=== PATIENT | male | born 1985 | race Caucasian/White ===

== ENCOUNTER → 2019-08-11 | Outpatient (CLI) | payer BC ==
--- NOTE | 2019-08-11 10:39 | KCIC ---
AP and Lateral Views of the Chest 08/11/2019 12:00 AM Indication: Shortness of breath. Difficulty breathing x1 month, increasing over the last 2-3 days. 15 year smoking history. Comparison: None available Findings: There is no focal consolidation or infiltrate identified. The cardiomediastinal silhouette is within normal limits. There is no evidence of pneumothorax or pleural effusion. No acute osseous abnormalities are identified. Impression: No evidence of acute cardiopulmonary process. Electronically signed by: Noam Randolph MD (08/11/2019 10:37 AM) [id number]
== END | disposition home or self-care (01) ==
LOC: KCIC 10:13
PROVIDERS: ATTEND Physician Assistant Medical
DX: R06.02 Shortness of breath (principal)
CPT/HCPCS: 71046

== ENCOUNTER 2019-11-18 10:13 | Emergency (ER) | payer BC ==
[~2019-11-18] VITALS: Ht 177.8 cm; Wt 81.8 kg
[2019-11-18 10:22] VITALS: BP 166/79
[2019-11-18] MEDS ORDERED: LIDOCAINE 1%/EPI 1:100,000 20 ML VIAL. INJ ONE (10:45)
[2019-11-18] MEDS ORDERED: ONDANSETRON ODT 4 MG TAB.RAPDIS. PO ONE (10:45)
[2019-11-18] MEDS ORDERED: DIPH,PERTUSS(ACELL),TET VAC/PF 0.5 ML SYRINGE. VAX IM ONE (10:45)
[2019-11-18] MEDS ORDERED: MORPHINE SULFATE 10 MG/ML VIAL. IM ONE (10:45)
[2019-11-18] MEDS ORDERED: CEPH-264 PO (11:57)
[2019-11-18] MEDS ORDERED: HYDR-2761 PO (11:57)
[2019-11-18] MEDS ORDERED: CEPHALEXIN 250 MG CAPSULE. PO ONE (12:00)
--- NOTE | 2019-11-18 13:25 | PHYS DOC ---
Past Medical History Past Medical History: Hypertension Past Surgical History: No Surgical History Smoking Status: Current Every Day Smoker Additional Information: VAPES Alcohol Use: Heavy Adult General Chief Complaint Chief Complaint: LACERATION/AVULSION HPI HPI Patient is a 34 year old right-handed male who presents with 5 cm full- thickness laceration extending into flexor hypothenar muscle. Bleeding is controlled. Injury occurred just prior to ED arrival. Tetanus is out of date. No other acute symptoms or complaints. [] Review of Systems Review of Systems ROS as per HPI. All other systems were reviewed and found to be within normal limits, except as documented in this note. Current Medications Current Medications Current Medications Medications (Trade) Dose Ordered Sig/[place] Start Time Stop Time Status Last Admin Dose Admin Cephalexin HCl (Keflex) 500 mg 1X ONCE 11/18/19 12:00 11/18/19 12:01 DC 11/18/19 12:07 500 MG Diphtheria/ Tetanus/Acell Pertussis (ADACEL TDap SYRINGE) 0.5 ml ONCE ONCE 11/18/19 10:45 11/18/19 10:53 DC 11/18/19 10:59 0.5 ML Lidocaine/ Epinephrine (LIDOCAINE 1%-EPI 1:100,000 Multi-Dose) 20 ml 1X ONCE 11/18/19 10:45 11/18/19 10:53 DC 11/18/19 10:58 20 ML Morphine Sulfate (Morphine Sulfate) 10 mg 1X ONCE 11/18/19 10:45 11/18/19 10:53 DC 11/18/19 10:58 10 MG Ondansetron HCl (Zofran Odt) 4 mg 1X ONCE 11/18/19 10:45 11/18/19 10:53 DC 11/18/19 10:58 4 MG Allergies Allergies Allergies Coded Allergies Type Severity Reaction Last Updated Verified No Known Drug Allergies 11/18/19 No Physical Exam Physical Exam Constitutional: Well developed, well nourished, no acute distress, non-toxic appearance. [] HENT: Normocephalic, atraumatic, bilateral external ears normal, no oral exudates, nose normal. [] Eyes: PERRLA, EOMI, conjunctiva normal. [] Neck: Normal range of motion, no tenderness. [] Cardiovascular:Heart rate regular rhythm, no murmur. [] Lungs & Thorax: Bilateral breath sounds clear to auscultation [] Abdomen: Bowel sounds normal, soft, no tenderness. [] Skin: Warm, dry [] Back: No tenderness. [] Extremities: No tenderness,no edema. [] Neurologic: Alert and oriented X 3, normal motor function, normal sensory function, no focal deficits noted. [] Psychologic: Affect normal, judgement normal, mood normal. [] Current Patient Data Vital Signs Vital Signs Date Time Temp Pulse Resp B/P (MAP) Pulse Ox O2 Delivery O2 Flow Rate FiO2 11/18/19 10:58 20 11/18/19 10:22 98.1 101 166/79 (108) 100 Room Air 98.1 EKG EKG [] Radiology/Procedures Radiology/Procedures Indication: [Left hand laceratiion] Procedure: The patient was placed in the appropriate position and anesthesia around the wound]. The area was then cleaned and explired]. The laceration was closed with a row of continuous locking with good wound edge approximation. The wound area was then dressed with a compression dressing]. Total repaired wound length: [5 cm]. Other Items: none The patient tolerated the procedure well Complications: none] Course & Med Decision Making Course & Med Decision Making Pertinent Labs and Imaging studies reviewed. (See chart for details) Wound is clean closed and dressed. Typical wound care instructions provided. Return precautions reviewed. Dragon Disclaimer Dragon Disclaimer This electronic medical record was generated, in whole or in part, using a voice recognition dictation system. Departure Departure Impression: Primary Impression: Laceration of left hand Disposition: 01 HOME, SELF-CARE Condition: IMPROVED Patient Instructions: Laceration Care, Adult, [id number] Additional Instructions: Please keep wound clean, covered and dry. Take ibuporfen for pain and hydrcodone as needed for additional relief. Complete full course of anitbiotics and return to the ED in 12-14 days for suture removal. Return sooner if signs of infection. Follow up with your PCP in 2-3 days for wound recheck. Scripts Cephalexin (KEFLEX) 500 Mg Capsule 1 CAP PO TID for 10 Days, #30 CAP 0 Refills Prov: BRIAN MYERS DO 11/18/19 Hydrocodone Bit/Acetaminophen (HYDROCODONE-APAP 5-325 ) 1 Tab Tablet 1 TAB PO PRN Q6HRS PRN for PAIN for 7 Days, #30 TAB 0 Refills Prov: BRIAN MYERS DO 11/18/19 BRIAN MYERS DO November 18, 2019 13:25
== END 2019-11-18 12:11 | disposition home or self-care (01) ==
LOC: ER 10:13
DX: S61.412A Laceration without foreign body of left hand, initial encounter (principal); I10 Essential (primary) hypertension; F17.200 Nicotine dependence, unspecified, uncomplicated; W31.2XXA Contact with powered woodworking and forming machines, initial encounter; Y93.89 Activity, other specified; Y92.098 Other place in other non-institutional residence as the place of occurrence of the external cause; Y99.8 Other external cause status
CPT/HCPCS: 12002; 90471; 90715; 96372; 99284; J2270; J3490; Q0162